=== PATIENT | male | born 1960 ===

== ENCOUNTER 2020-06-28 13:08 | Outpatient (CLI) | payer MEDICAID ==
[~2020-06-28] VITALS: Ht 172.7 cm; Wt 67.1 kg
[2020-06-28 13:51] VITALS: BP 106/78
[2020-06-29] MEDS ORDERED: GLUCOTROL XL10 MG ORAL (12:27)
[2020-06-29] MEDS ORDERED: AMLODIPINE BESYL5 MG ORAL (12:27)
[2020-06-29] MEDS ORDERED: FLOMAX0.4 MG ORAL (12:27)
[2020-06-29] MEDS ORDERED: METFORMIN HCL1000 M1 ORAL (12:27)
[2020-06-29] MEDS ORDERED: ATORVASTATIN CA40 MG ORAL (12:27)
--- NOTE | 2020-06-29 18:45 | Consultation ---
DATE OF CONSULTATION: 06/28/2020 CHIEF COMPLAINT: 40 pounds of weight loss. PAST MEDICAL HISTORY: 1. Diabetes. 2. Hypertension. 3. Hypercholesteremia. PAST SURGICAL HISTORY: Right hernia surgery, right eye surgery MEDICATIONS: Please see medication reconciliation list. FAMILY HISTORY: Father had prostate cancer. SOCIAL HISTORY: The patient denies any tobacco, alcohol, or drug abuse. ALLERGIES: No known drug allergies. REVIEW OF SYSTEMS: Positive for 40 pounds of weight loss, unwanted. PHYSICAL EXAMINATION: VITAL SIGNS: Temperature 97.9, blood pressure 160/70, pulse 92, respirations 20. HEENT: Normocephalic and atraumatic. Sclerae are anicteric. NECK: Supple. No evidence of obvious lymphadenopathy. CARDIOVASCULAR: Regular rate and rhythm. Plus S1, S2. LUNGS: Clear to auscultation bilaterally. ABDOMEN: Positive bowel sounds. Soft and nontender. No rebound. No guarding. No peritoneal sign. EXTREMITIES: No cyanosis. No clubbing. No edema. ASSESSMENT AND PLAN: This is a 59-year-old male with significant unwanted weight loss of 40 pounds. Plan to schedule the patient for endoscopy and colonoscopy when authorization is obtained. Vernon Robledo M.D. DR: REDD JOB#: [id number] CC:
== END 2020-06-28 15:06 | disposition home or self-care (01) ==
LOC: PAN 13:08
DX: R63.4 Abnormal weight loss (principal); E11.9 Type 2 diabetes mellitus without complications; I10 Essential (primary) hypertension; E78.00 Pure hypercholesterolemia, unspecified; Z80.42 Family history of malignant neoplasm of prostate
CPT/HCPCS: G0463

== ENCOUNTER 2020-08-30 12:45 | Outpatient (CLI) | payer MEDICAID ==
[~2020-08-30 12:45] MED LIST: AMLODIPINE BESYL5 MG ORAL; ATORVASTATIN CA40 MG ORAL; FLOMAX0.4 MG ORAL; GLUCOTROL XL10 MG ORAL; METFORMIN HCL1000 M1 ORAL
[2020-08-30 13:19] VITALS: BP 120/75
--- NOTE | 2020-08-30 15:43 | General Progress Note ---
Subjective ROS Limited/Unobtainable: Yes Allergies: Coded Allergies: No Known Allergies (Unverified , 06/28/20) Objective Last 24 Hour Vital Signs Date Time Temp Pulse Resp B/P (MAP) Pulse Ox O2 Delivery O2 Flow Rate FiO2 08/30/20 13:19 97.9 70 16 120/75 100 General Appearance: alert EENT: normal ENT inspection Neck: supple Cardiovascular: normal rate Respiratory/Chest: lungs clear Abdomen: normal bowel sounds, non tender, soft Extremities: non-tender Assessment/Plan Assessment/Plan: un wanted WT loss>>> improving s/p EGd and colonoscopy 08/19/2020 4 colon polyps needs repeat colon in 3 years Vernon Robledo MD Aug 30, 2020 15:43
== END 2020-08-30 14:45 | disposition home or self-care (01) ==
LOC: PAN 12:45
DX: R63.4 Abnormal weight loss (principal); K63.5 Polyp of colon

== ENCOUNTER 2020-11-29 13:13 | Outpatient (CLI) | payer MEDICAID ==
--- NOTE | 2020-11-29 13:15 | General Progress Note ---
Subjective ROS Limited/Unobtainable: Yes Allergies: Coded Allergies: No Known Allergies (Unverified , 06/28/20) Objective General Appearance: alert EENT: normal ENT inspection Neck: supple Cardiovascular: normal rate Respiratory/Chest: lungs clear Abdomen: normal bowel sounds, non tender, soft Extremities: non-tender Assessment/Plan Assessment/Plan: Assessment/Plan Assessment/Plan: un wanted WT loss>>> improving s/p EGd and colonoscopy 08/19/2020 4 colon polyps needs repeat colon in 3 years s/p HP treatment stool for HP Vernon Robledo MD Nov 29, 2020 13:15
== END 2020-11-29 16:17 | disposition home or self-care (01) ==
LOC: PAN 13:13
DX: K63.5 Polyp of colon (principal); R63.4 Abnormal weight loss
CPT/HCPCS: 99212